=== PATIENT | female | born 1955 | race Caucasian/White ===

== ENCOUNTER 2018-02-17 21:25 | Outpatient (REF) | payer OTHER, SELFPAY ==
[2018-02-17 22:33] LABS: Cholesterol 192 mg/dL (50-200); Glucose 95 mg/dL (70-100); HDL Cholesterol 49 mg/dL (40-60); LDL CHOLESTEROL 120 mg/dL (<100); Triglyceride 132 mg/dL (30-150)
== END 2018-02-17 21:45 ==
LOC: NCHCN 21:25
PROVIDERS: Visit Provider Nurse Practitioner Family
DX: Z13.1 Encounter for screening for diabetes mellitus (principal); Z13.220 Encounter for screening for lipoid disorders
CPT/HCPCS: 80061; 82947; 83721

== ENCOUNTER 2018-03-31 17:13 | Outpatient (REF) | payer OTHER, SELFPAY ==
--- NOTE | 2018-03-31 16:30 | PAPFT_PTH ---
PATIENT: Ольга Cervantes LOC: [facility] U#:[id number] AGE/SX: 62/F ROOM: RE03/31/[address]: Marya Singh : 1955 BED: DIS: 03/31/2018 SPEC #: [id number] RECD: 04/01/18 12:52 STATUS: RAMON REXin #: [id number] GARFIELD: 03/31/18 16:[address]: Marya Knutson DEPT: [facility] Cytology RECD BY: Isaura Aguirre Tissues: 1 - CX/ENDOCX FOR PAP SMEARS Procedures: PAP THIN PREP/UVM Screening HPV DNA PROBE Comments: [id number]
== END 2018-03-31 17:33 ==
LOC: NCHCN 17:13
PROVIDERS: Visit Provider Nurse Practitioner Family
DX: Z00.00 Encounter for general adult medical examination without abnormal findings (principal); Z12.4 Encounter for screening for malignant neoplasm of cervix; Z11.51 Encounter for screening for human papillomavirus (HPV)
CPT/HCPCS: 88142; 87624

== ENCOUNTER 2019-05-18 00:47 | Outpatient (CLI) | payer OTHER, SELFPAY ==
--- NOTE | 2019-05-18 | DI.MAMMO_ITS ---
EXAM: MG MAMMO SCREENING CLINICAL HISTORY: SCREENING, Z12.39 TECHNIQUE: Bilateral full field digital CC and MLO mammographic images were obtained with 3D tomosyn thesis and utilizing computer aided detection (CAD). COMPARISON: Available for comparison. FINDINGS: Masses/Architectural Distortion: None seen. Biopsy clips are seen in both breasts. Microcalcifications: No suspicious pleomorphic-type are seen. Skin Thickening/Nipple Retraction: None. IMPRESSION: 1. No significant interval change with no specific features of malignancy noted. 2. Unless there is more urgent need, screening mammography is recommended, as per [employer] guidelines. BI-RADS Cat 1 - Negative Breast Density - Category C - Heterogeneously dense The mammogram demonstrates the patient's breast tissue is dense. Dense breast tissue is very common a nd is not abnormal but dense breast tissue can make it harder to find cancer on a mammogram. Also, de nse breast tissue may increase their breast cancer risk. This information about the result of the [facility] mogram report was provided to the patient to raise their awareness. Use this report when you speak wi th the patient about their risks for breast cancer, which includes their family history. At that time , you may recommend for more screening tests (Ultrasound or MRI) as they might be useful based on the ir risk. A negative radiographic report should not delay biopsy if a dominant or clinically suspicious mass is present. Up to ten percent of cancers are not identified on mammography. A negative report may reinforce clinical impression. Adenosis and dense breasts may obscure an underlying neoplasm. False positive reports average 6 to 10%. Patient will receive a letter notifying them of these results.
== END 2019-05-18 01:07 ==
PROVIDERS: PCP Nurse Practitioner Family; Visit Provider Nurse Practitioner Family
DX: Z12.31 Encounter for screening mammogram for malignant neoplasm of breast (principal)
CPT/HCPCS: 77063; 77067

== ENCOUNTER 2020-01-04 08:49 | Outpatient (REF) | payer SELFPAY ==
[2020-01-07 14:37] LABS: Patient Race White; SARS-CoV-2 RNA Undetected (Undetected); SARS-CoV-2 Specimen Source Nasal
== END 2020-01-04 09:09 ==
LOC: NCHCN 08:49
PROVIDERS: PCP Nurse Practitioner Family; Visit Provider Family Medicine
DX: Z20.828 Contact with and (suspected) exposure to other viral communicable diseases (principal)
CPT/HCPCS: U0003

== ENCOUNTER 2021-04-12 14:12 | Outpatient (REF) | payer OTHER, SELFPAY ==
[2021-04-12 15:06] LABS: Abs Immature Grans 0.02 10^3/uL (0.0-0.06); Absolute Basophil Count 0.05 10^3/uL (0.0-0.2); Absolute Lymphocyte Count 2.81 10^3/uL (1.2-3.4); Basophils % 0.5; Eosinophils % 3.2; HCT 43.7 % (36.0-46.0); HGB 14.5 g/dL (11.2-15.7); Immature Grans % 0.2; MCH 30.7 pg (27.0-33.0); MCHC 33.2 % (32.0-36.0); MCV 92.6 fL (80-95); MPV 11.5 fL (8.0-11.0); Monocytes % 6.4; Neutrophils % 59.7; Nucleated RBC 0 %; Platelet Count 276 10^3/uL (130-400); RBC 4.72 10^6/uL (3.93-5.22); RDW 12.2 % (11.7-14.6); RDW-SD 41.6 fL; WBC 9.38 10^3/uL (4.4-10.8)
[2021-04-12 15:23] LABS: ALT 33 U/L (14-59); AST 23 U/L (15-37); Albumin 4.1 g/dL (3.4-5.0); Alkaline Phosphatase 48 U/L (46-116); Anion Gap 5.3 mmol/L (3-11); BUN 19 mg/dL (7-18); Bilirubin, Total 0.3 mg/dL (0.2-1.0); CO2 31.7 mmol/L (21.0-32.0); CREATININE 0.8 mg/dL (0.55-1.02); Calcium 8.9 mg/dL (8.5-10.1); Chloride 101 mmol/L (98-107); Glucose 94 mg/dL (74-106); Potassium 4.7 mmol/L (3.5-5.1); Sodium 138 mmol/L (136-145); TSH 9.18 uIU/mL (0.36-3.74); Total Protein 6.9 g/dL (6.4-8.2)
[2021-04-13 09:03] LABS: FREE T4 0.72 ng/dL (0.76-1.46)
== END 2021-04-12 14:13 | disposition home or self-care (01) ==
LOC: NCHCN 14:12
PROVIDERS: PCP Nurse Practitioner Family; Visit Provider Registered Nurse
DX: R00.2 Palpitations (principal); L65.9 Nonscarring hair loss, unspecified; R07.89 Other chest pain
CPT/HCPCS: 80053; 84439; 84443; 85025

== ENCOUNTER 2021-05-24 17:51 | Outpatient (REF) | payer OTHER, SELFPAY ==
[2021-05-24 15:59] LABS: TSH 9.28 uIU/mL (0.36-3.74)
== END 2021-05-24 17:52 | disposition home or self-care (01) ==
LOC: NCHCN 17:51
PROVIDERS: PCP Nurse Practitioner Family; Visit Provider Registered Nurse
DX: E03.9 Hypothyroidism, unspecified (principal)
CPT/HCPCS: 84443

== ENCOUNTER 2021-07-12 17:54 | Outpatient (REF) | payer OTHER, SELFPAY ==
[2021-07-12 14:10] LABS: TSH 9.18 uIU/mL (0.36-3.74)
== END 2021-07-12 17:55 | disposition home or self-care (01) ==
LOC: NCHCN 17:54
PROVIDERS: PCP Nurse Practitioner Family; Visit Provider Nurse Practitioner Family
DX: E03.9 Hypothyroidism, unspecified (principal)
CPT/HCPCS: 84443

== ENCOUNTER 2021-10-11 15:09 | Outpatient (REF) | payer OTHER, SELFPAY ==
[2021-10-11 16:12] LABS: TSH 13.63 uIU/mL (0.36-3.74)
== END 2021-10-11 15:10 | disposition home or self-care (01) ==
LOC: NCHCN 15:09
PROVIDERS: PCP Nurse Practitioner Family; Visit Provider Nurse Practitioner Family
DX: E03.9 Hypothyroidism, unspecified (principal)
CPT/HCPCS: 84443

== ENCOUNTER 2022-01-10 10:36 | Outpatient (REF) | payer OTHER, SELFPAY ==
[2022-01-10 15:18] LABS: TSH 16.91 uIU/mL (0.36-3.74)
== END 2022-01-10 10:37 | disposition home or self-care (01) ==
LOC: NCHCN 10:36
PROVIDERS: PCP Nurse Practitioner Family; Visit Provider Nurse Practitioner Family
DX: E03.9 Hypothyroidism, unspecified (principal)
CPT/HCPCS: 84443